=== PATIENT | male | born 1975 | race Caucasian/White ===

== ENCOUNTER 2018-03-17 17:27 | Emergency (ER) | payer BC ==
--- NOTE | 2018-03-17 18:45 | EDPHY ---
H & P Time Seen by Provider: 03/17/18 18:25 HPI/ROS: CHIEF COMPLAINT: Headache, abnormal pupils HISTORY OF PRESENT ILLNESS: Patient is a 42-year-old male with a history migraine headache. Yesterday went for heart run. He developed a migraine type headache. He had a typical aura. Patient laid down to try to resolve his headache. He noticed that he had mild weakness on the left upper and left lower extremity. Patient states he attempted to ambulate and stumbled forward multiple times. He felt as though his feet were not working normally. Today his symptoms have resolved. He has only a slight headache. He has no focal neurologic deficits. However, the patient noted that his pupils were different sizes. This is not typical. His left pupil is larger than the right. He has no visual change. No double or blurred vision with eye movement. No neck pain. No recent trauma or fall. REVIEW OF SYSTEMS: My complete review of systems is negative except as mentioned in the HPI. Past Medical/Surgical History: Includes migraine headache, sinus surgery Social history: Patient does not smoke Smoking Status: Never smoked Physical Exam: Vitals noted GENERAL: Well-appearing, in no acute distress, alert. HEENT: Patient's left pupil is larger than his right. No APD. EOMI. Reactive. Normal Fundi. Normal pharynx. NECK: No thyromegaly, no lymphadenopathy, supple. RESPIRATORY: Clear to auscultation bilaterally, no rales, rhonchi or wheezing. CVS: Regular rate and rhythm, no rubs, murmurs, or gallops. ABDOMEN: Soft, nontender, nondistended, no organomegaly. BACK: Normal to inspection, no CVA tenderness. SKIN: Normal color, no rash, warm, dry. No pallor. EXTREMITIES: No pedal edema, no calf tenderness, no Homans sign or cords, no joint swelling. NEURO/PSYCH: Higher functions: Alert and Oriented x3. Normal speech and cognition. Normal mood and affect. Cranial nerves: Normal as tested. Cerebellar: Normal as tested. Good finger to nose, good [id number], normal gait. Peripheral exam: Normal motor exam. Normal sensation. Normal reflexes. Constitutional: Initial Vital Signs Temperature (C) 36.9 C 03/17/18 17:45 Heart Rate 49 L 03/17/18 17:45 Respiratory Rate 16 03/17/18 17:45 Blood Pressure 150/95 H 03/17/18 17:45 O2 Sat (%) 95 03/17/18 17:45 O2 Delivery Mode Room Air Allergies/Adverse Reactions: No Known Allergies Allergy (Unverified 03/17/18 17:45) Home Medications: Medication Instructions Recorded Flonase Nasal [place] 03/17/18 Medical Decision Making - Diagnostics Imaging Results: Imaging Impressions Head CT 03/17/18 18:41 Impression: There is no acute intracranial abnormality identified on this unenhanced CT evaluation. If there is further clinical concern regarding the patient's symptoms, MR imaging is suggested, if not otherwise contraindicated. Findings were discussed with TONI BRUNER MD at 19:06, on 03/17/2018. ED Course/Re-evaluation: In the emergency department I discussed possible etiologies with the patient. I answered all his questions. IV was placed. Laboratory studies were obtained. Due the patient's headache yesterday and is abnormal pupil size head CT was ordered. I discussed this with the patient. Head CT: No acute disease. Please refer the dictated report by Dr. Aristides Lea. Patient's CBC and chemistry unremarkable. Discussed case with Dr. Abarca from Neurology. He recommended CT angio of the head neck. I discussed this with the patient. I answered all his questions. CT angio head neck: Please refer the dictated report. No acute disease noted. I discussed the results with the patient. On recheck he still has slightly enlarged left pupil compared to the right. His neuro exam was otherwise unremarkable. Dr. Abarca recommended the patient be discharged home with his angiogram studies were negative. He will follow up with Dr. Abarca and contract information was given. Differential Diagnosis: My differential includes but is not limited to ischemic CVA, hemorrhagic CVA, dissection, aneurysm, mass, malignancy, aniscoria - Data Points Laboratory Results: Laboratory Results 03/17/18 19:12 03/17/18 19:12 03/17/18 03/17/18 03/17/18 19:12 19:12 19:12 WBC 6.27 10^3/uL 10^3/uL (3.80-9.50) RBC 5.57 10^6/uL 10^6/uL (4.40-6.38) Hgb 16.9 g/dL g/dL (13.7-17.5) Hct 48.1 % % (40.0-51.0) MCV 86.4 fL fL (81.5-99.8) MCH 30.3 pg pg (27.9-34.1) MCHC 35.1 g/dL g/dL (32.4-36.7) RDW 12.3 % % (11.5-15.2) Plt Count 210 10^3/uL 10^3/uL (150-400) MPV 9.0 fL fL (8.7-11.7) Neut % (Auto) 62.1 % % (39.3-74.2) Lymph % (Auto) 27.6 % % (15.0-45.0) [place] % (Auto) 7.0 % % (4.5-13.0) Eos % (Auto) 2.4 % % (0.6-7.6) Baso % (Auto) 0.6 % % (0.3-1.7) Nucleat RBC Rel Count 0.0 % % (0.0-0.2) Absolute Neuts (auto) 3.89 10^3/uL 10^3/uL (1.70-6.50) Absolute Lymphs (auto) 1.73 10^3/uL 10^3/uL (1.00-3.00) Absolute Monos (auto) 0.44 10^3/uL 10^3/uL (0.30-0.80) Absolute Eos (auto) 0.15 10^3/uL 10^3/uL (0.03-0.40) Absolute Basos (auto) 0.04 10^3/uL 10^3/uL (0.02-0.10) Absolute Nucleated RBC 0.00 10^3/uL 10^3/uL (0-0.01) Immature Gran % 0.3 % % (0.0-1.1) Immature Gran # 0.02 10^3/uL 10^3/uL (0.00-0.10) PT 13.1 SEC SEC (12.0-15.0) INR 0.97 (0.83-1.16) APTT 28.1 SEC SEC (23.0-38.0) Sodium 139 mEq/L mEq/L (135-145) Potassium 4.4 mEq/L mEq/L (3.3-5.0) Chloride 99 mEq/L mEq/L (97-110) Carbon Dioxide 29 mEq/l mEq/l (22-31) Anion Gap 11 mEq/L mEq/L (8-16) BUN 22 mg/dL mg/dL (7-23) Creatinine 1.0 mg/dL mg/dL (0.7-1.3) Estimated GFR > 60 Glucose 91 mg/dL mg/dL (70-100) Calcium 9.9 mg/dL mg/dL (8.5-10.4) Medications Given: Discontinued Medications Sodium Chloride (Ns) 500 mls @ 0 mls/hr IV ONCE ONE; Wide Open PRN Reason: Protocol Stop: 03/17/18 18:42 Last Admin: 03/17/18 19:16 Dose: 500 mls Departure - Departure Disposition: Home, Routine, Self-Care Clinical Impression: Anisocoria Headache Qualifiers: Headache type: unspecified Headache chronicity pattern: acute headache Intractability: not intractable Qualified Code(s): R51 - Headache Condition: Good Instructions: Acute Headache (ED) Additional Instructions: Your CT imaging was unremarkable. You need close follow-up with both Ophthalmology and Neurology. Contact information has been given. Return to the emergency department sooner if you developed increasing headache, weakness, numbness, focal neurologic deficits or any other concerns. Referrals: Ashish Mahan MD [Primary Care Provider] - As per Instructions Anya King MD [Medical Doctor] - 1-2 days without fail Ravinder Abarca DO [Doctor of Osteopathy] - 1-2 days without fail
[2018-03-17] MEDS: NS 500 ML IV ONE (19:16)
[2018-03-17 19:26] LABS: PLATELET COUNT 210 10^3/uL (150-400)
[2018-03-17 19:32] LABS: INR 0.97 (0.83-1.16); PROTIME(PATIENT) 13.1 SEC (12.0-15.0)
[2018-03-17] MEDS ORDERED: IOPAMIDOL (ISOVUE 370) 100 ML BTL IV ONE (19:52)
[2018-03-17 21:14] VITALS: BP 118/83
== END 2018-03-17 21:14 | disposition home or self-care (01) ==
DX: H57.02 Anisocoria (principal); R51 Headache; E86.9 Volume depletion, unspecified
CPT/HCPCS: Q9967

== ENCOUNTER → 2018-04-07 | Outpatient (CLI) | payer BC ==
[~2018-04-07] MED LIST: GADOBUTROL 10 ML VIAL IVP ONE
== END ==
LOC: FIMAGING 15:10
PROVIDERS: ATTEND Psychiatry & Neurology Neurology
DX: G43.109 Migraine with aura, not intractable, without status migrainosus (principal)
CPT/HCPCS: A9585